=== PATIENT | female | born 1970 | race Caucasian/White ===

== ENCOUNTER → 2016-12-16 | Outpatient (CLI) | payer OTHER ==
--- NOTE | 2016-12-16 17:17 | MA ---
Digital Screening Mammogram With iCAD Indication: Routine screening. Mother diagnosed with breast cancer at the age of 77. Breast density: Type C. Technique: Four views of each breast are obtained including CC and oblique lateral Belinda (implant di splaced) and non-Belinda (implant not displaced) views. CAD is utilized using the iCAD product. Comparison: August 2015, May 2014, and November 2012 Findings: No malignant-type calcifications, mass, or architectural distortion. Bilateral breast impl ants are unchanged in configuration. Impression: Negative mammograms. BI-RADS 1: Negative Recommendation: Routine screening in one year. [facility] will send a result letter to the patient. Negative mammography should not preclude additional workup of a clinically suspicious finding. The patient's information is entered into a reminder system with a target due date for her next mammo gram.
== END ==
LOC: BRMIMAGING 11:00
DX: Z12.31 Encounter for screening mammogram for malignant neoplasm of breast (principal); Z80.3 Family history of malignant neoplasm of breast
CPT/HCPCS: G0202

== ENCOUNTER → 2018-02-09 | Outpatient (CLI) | payer OTHER | LOC: BRMIMAGING 15:09 | PROVIDERS: ATTEND Physician Assistant Surgical | DX: Z12.31 Encounter for screening mammogram for malignant neoplasm of breast (principal); Z80.3 Family history of malignant neoplasm of breast ==

== ENCOUNTER → 2019-03-03 | Outpatient (CLI) | payer OTHER | LOC: BRMIMAGING 08:28 | DX: Z12.31 Encounter for screening mammogram for malignant neoplasm of breast (principal); Z98.82 Breast implant status; Z80.3 Family history of malignant neoplasm of breast ==